=== PATIENT | female | born 1950 | race Caucasian/White ===

== ENCOUNTER → 2019-05-29 | Outpatient (CLI) | payer MEDICARE, OTHER | LOC: OD 10:36 | PROVIDERS: ATTEND Family Medicine Geriatric Medicine | DX: N39.0 Urinary tract infection, site not specified (principal) | CPT/HCPCS: 87086; 87088; 87186 ==

== ENCOUNTER 2019-07-20 05:37 | Day surgery (SDC) | payer MEDICARE, OTHER ==
[2019-07-17 13:03] LABS: AMORPHOUS SEDIMENT,URINE TRACE /HPF; APPEARANCE,URINE CLOUDY; BILIRUBIN,URINE NEGATIVE (NEGATIVE); COLOR,URINE YELLOW; GLUCOSE, URINE NEGATIVE (NEGATIVE); KETONES,URINE NEGATIVE (NEGATIVE); LEUKOCYTE ESTERASE,URINE NEGATIVE (NEGATIVE); NITRITE,URINE NEGATIVE (NEGATIVE); PROTEIN,URINE NEGATIVE (NEGATIVE); URINE SPECIFIC GRAVITY 1.015; UROBILINOGEN,URINE NEGATIVE mg/dL (<2.0)
[2019-07-17 13:07] LABS: HEMATOCRIT 42.2 % (36.0-47.0); HEMOGLOBIN 14.2 g/dL (12.0-15.5); MEAN CORPUSCULAR HEMOGLOBIN 31.1 pg (27.0-33.4); MEAN CORPUSCULAR HGB CONC 33.8 g/dL (32.0-36.0); MEAN CORPUSCULAR VOLUME 92 fl (80-97); PLATELET COUNT 316 10^3/uL (150-450); RED BLOOD COUNT 4.58 10^6/uL (3.72-5.28); RED CELL DISTRIBUTION WIDTH 13.2 % (11.5-14.0); WHITE BLOOD COUNT 8.6 10^3/uL (4.0-10.5)
[2019-07-17 13:08] LABS: ALBUMIN 4.9 g/dL (3.5-5.0); ALKALINE PHOSPHATASE 46 U/L (38-126); ANION GAP 14 (5-19); ASPARTATE AMINO TRANSFERASE 26 U/L (14-36); BILIRUBIN,DIRECT 0.3 mg/dL (0.0-0.4); BILIRUBIN,TOTAL 0.6 mg/dL (0.2-1.3); BLOOD UREA NITROGEN 17 mg/dL (7-20); CALCIUM 10.4 mg/dL (8.4-10.2); CARBON DIOXIDE 24 mmol/L (22-30); CHLORIDE 103 mmol/L (98-107); GLUCOSE 106 mg/dL (75-110); POTASSIUM 4.4 mmol/L (3.6-5.0); TOTAL PROTEIN 7.4 g/dL (6.3-8.2)
--- NOTE | 2019-07-17 13:44 | RADIOLOGY REPORT (SQ) ---
EXAM DESCRIPTION: CHEST PA/LATERAL COMPLETED DATE/TIME: 07/17/2019 12:26 pm REASON FOR STUDY: PRE-OP COMPARISON: None. EXAM PARAMETERS: NUMBER OF VIEWS: two views TECHNIQUE: Digital Frontal and Lateral radiographic views of the chest acquired. RADIATION DOSE: NA LIMITATIONS: none FINDINGS: LUNGS AND PLEURA: No opacities, masses or pneumothorax. No pleural effusion. MEDIASTINUM AND HILAR STRUCTURES: No masses or contour abnormalities. HEART AND VASCULAR STRUCTURES: Heart normal size. No evidence for failure. Aortic atherosclerosis. BONES: No acute findings. HARDWARE: Partially visualized cervical fusion hardware. Bone anchor overlies left humerus. OTHER: No other significant finding. IMPRESSION: NO SIGNIFICANT RADIOGRAPHIC FINDING IN THE CHEST. TECHNICAL DOCUMENTATION: JOB ID: [id number] [employer]- All Rights Reserved Reading location - IP/workstation name: [email or web address]
--- NOTE | 2019-07-17 15:52 | EKG REPORT ---
SEVERITY:- BORDERLINE ECG - SINUS RHYTHM BORDERLINE T ABNORMALITIES, ANTERIOR LEADS : Confirmed by: Jo-Ann Partida MD 17-Jul-2019 15:51:20
[~2019-07-20 05:37] MED LIST: CLINDAMYCIN 900 MG/D5W RTU 900 MG/50 ML RTUPB IV ONE; CLINDAMYCIN 900 MG/D5W RTU 900 MG/50 ML RTUPB IV PRN; GENTAMICIN SULFATE 120 MG in DEXTROSE 5%-WATER 100 ML IV PRN; LACTATED RINGERS 1000 ML IV PRN; LIDOCAINE 0.5% INJ-PF (5 MG/ML) 50 ML SDV SUBCUT PRN
[2019-07-20] MEDS ORDERED: FENTANYL CITRATE INJ/PF 250 MCG/5 ML AMPULE ONE (07:00)
[2019-07-20] MEDS ORDERED: LIDOCAINE 2% INJ-PF (20 MG/ML) 10 ML AMPUL ONE (07:00)
[2019-07-20] MEDS ORDERED: ONDANSETRON HCL INJ/PF 4 MG/2 ML SDV ONE (07:01)
[2019-07-20] MEDS ORDERED: PROPOFOL INJ 200 MG/20 ML VIAL IV ONE (07:01)
[2019-07-20] MEDS ORDERED: MIDAZOLAM 2 MG/2 ML INJ ONE (07:01)
[2019-07-20] MEDS ORDERED: HYDROMORPHONE HCL INJ/PF 2 MG/ML AMPULE ONE (07:01)
[2019-07-20] MEDS ORDERED: SUGAMMADEX SODIUM 200 MG/2 ML SDV IV ONE (07:01)
[2019-07-20] MEDS ORDERED: DEXAMETHASONE SOD PHOSPHATE INJ 4 MG/1 ML VIAL ONE (07:01)
[2019-07-20] MEDS ORDERED: METHYLENE BLUE 50 MG/10 ML AMPULE ONE (07:06)
[2019-07-20] MEDS ORDERED: BUPIVACAINE HCL 0.25% /EPINEPHRINE INJ/PF 30 ML SDV ONE (07:06)
[2019-07-20] MEDS ORDERED: LIDOCAINE 1%/EPINEPHRINE INJ 20 ML VIAL ONE (07:06)
[2019-07-20] MEDS ORDERED: MEPERIDINE HCL/PF INJ 25 MG/1 ML DISP.SYRIN IV PRN (08:04)
[2019-07-20] MEDS ORDERED: FENTANYL CITRATE INJ/PF 100 MCG/2 ML AMPUL IV PRN ×3 (08:04)
[2019-07-20] MEDS ORDERED: DIPHENHYDRAMINE HCL 50 MG/ML VIAL IV PRN (08:04)
[2019-07-20] MEDS ORDERED: PROMETHAZINE HCL INJ 25 MG/1 ML VIAL IV PRN ×2 (08:04)
[2019-07-20] MEDS ORDERED: ESTROGENS,CONJUGATED 0.625 MG/1 GM 30 GM TUBE PV ONE (08:30)
[2019-07-20] MEDS ORDERED: ACETAMINOPHEN 1,000 MG/100 ML RTUPB IV ONE (10:12)
--- NOTE | 2019-07-20 11:52 | Operative Report ---
Operative Report DATE OF SURGERY: 07/20/19 PREOPERATIVE DIAGNOSIS: Grade 3 uterovaginal prolapse, pelvic pain POSTOPERATIVE DIAGNOSIS: Same OPERATION: Laparoscopic assisted vaginal hysterectomy with bilateral salpingo- oophorectomy uterosacral suspension anterior and posterior repair SURGEON: ELIZABETH OWENS 1ST STRAND FORMING MACHINE OPERATOR: DIVYA OLIVEIRA ANESTHESIA: GA TISSUE REMOVED OR ALTERED: Uterus cervix and bilateral fallopian tubes and ovaries COMPLICATIONS: None ESTIMATED BLOOD LOSS: 100 cc INTRAOPERATIVE FINDINGS: 6 weeks size uterus postmenopausal ovaries grade 3 uterovaginal prolapse PROCEDURE: She was taken to the operating room prepared and draped in a normal sterile fashion in a dorsal lithotomy position with Julian stirrups. A Thurston catheter was placed to gravity under sterile conditions. A sterile speculum was placed in the vagina and the cervix was grasped on the anterior lip with a single-tooth tenaculum and a Hulka clamp was placed through the cervical canal for uterine manipulation without difficulty. Sterile speculum was removed as well as the tenaculum gloves were changed and attention was turned to the upper portion of the case. An umbilical skin incision was made to accommodate a 5 mm laparoscopic port. The peritoneal cavity was entered sharply with a varies needle and confirmation of peritoneal cavity entry was made with free-flowing sterile water through the needle. Abdomen was then inflated with approximately 2 L of CO2 gas. The varies needle was removed and the 5 mm port was placed through this incision without difficulty. That was then introduced and the above findings were noticed as the patient was placed in steep Trendelenburg. Under direct visualization 2 5 mm ports were placed on either side of the umbilicus approximately 10 cm from the umbilicus. A blunt probe was used to sweep away the bowel. Beginning with the right adnexa at this was divided at the IP ligament using the LigaSure. The right round ligament was divided again using the LigaSure and the mesosalpinx was ligated. Arteries were skeletonized using the LigaSure and some blunt dissection. We then turned our attention to the left portion of the adnexa and the left IP ligament was noted and ligated with the LigaSure. Again carried through the uterine artery dissection the LigaSure with good hemostasis maintained throughout. At this time attention was then turned to the vaginal part portion of the case. Abdomen was deflated and the camera and instruments were removed from the abdomen we then placed a short weighted speculum into the vagina the single-tooth tenaculum was removed. The cervix was then grasped with toothed triple tooth Anastacia's and was injected circumferentially with 10 cc of bupivacaine with epi. The cervix was then scored in a circumferential fashion and the mucosa was dissected away from the lower uterine segment and cervix with sharp dissection using the Humphrey scissors. The posterior cul-de-sac was entered sharply using the Mayos and a long weighted speculum replaced the short weighted speculum. We then turned our attention to entering the anterior cul-de-sac which was completed and a Sundance blade was placed into this defect to hold the bladder away. Uterus sacral ligaments were then clamped and cut on both sides using 0 Vicryl. The uterine arteries were then transected and ligated using a LigaSure. Until the specimen was completely freed. The cement was then removed and passed off the field. The vaginal cuff was then closed with 0 Vicryl runner. We then began with the anterior repair and injected approximately 5 cc of lidocaine in them in the midline hurting approximately 2 cm below the urethral opening the mucosa was then scored with a 15 blade. Mucosa was dissected sharply away from the bladder and the posterior aspect of the pubic symphysis could be felt. 3 support sutures of 2-0 Vicryl were placed in a bridge fashion under the bladder. The excess mucosa was then trimmed and this defect was then closed with 0 Vicryl runner. We then turned our attention to the posterior repair uterosacral suspension. The posterior mucosa was grasped with 2 Allis clamps and injected in the midline once more with BK bupivacaine with epi. The mucosa was scored with a 15 blade and the mucosa was dissected away from the rectocele using Metzenbaums and blunt dissection. Once the uterosacral ligament was adequately felt at the posterior pubic bone the anchor stitch was deployed with good support into the uterosacral ligament. The posterior repair was then completed with 2 more sutures of 0 Vicryl bridge. The anchor stitch was tied down. And the mucosa was closed using an 0 Vicryl runner once more the vagina was then packed with a Kerlix soaked in Premarin cream. Patient tolerated procedure well sponge lap and needle counts were correct x2 and the patient was taken recovery in stable condition.
[2019-07-20] MEDS ORDERED: PHENYLEPHRINE HCL INJ/PF 10 MG/1 ML SDV ONE (13:58)
[2019-07-20] MEDS ORDERED: GLYCOPYRROLATE 1 MG/5 ML VIAL ONE (13:58)
[2019-07-20] MEDS ORDERED: NEOSTIGMINE METHYLSULFATE 10 MG/10 ML VIAL ONE (13:58)
[2019-07-20] MEDS: KETOROLAC TROMETHAMINE INJ/PF 30 MG/1 ML SDV IV SCH ×2 (14:45→21:22)
[2019-07-20] MEDS ORDERED: ACETAMINOPHEN INJ/PF 1000 MG/100 ML SDV IV SCH (18:00)
[2019-07-20] MEDS: RINGERS SOLUTION,LACTATED 1,000 ML IV PRN (21:24)
[2019-07-21] MEDS: RINGERS SOLUTION,LACTATED 1,000 ML IV PRN (05:12)
[2019-07-21] MEDS: KETOROLAC TROMETHAMINE INJ/PF 30 MG/1 ML SDV IV SCH (05:13)
[2019-07-21 06:43] LABS: ABSOLUTE LYMPHOCYTES (AUTO) 1.5 10^3/uL (0.5-4.7); BASOPHILS % (AUTO) 0.2 % (0-2); HEMATOCRIT 34.4 % (36.0-47.0); HEMOGLOBIN 11.5 g/dL (12.0-15.5); LYMPHOCYTES % (AUTO) 11.9 % (13-45); MEAN CORPUSCULAR HEMOGLOBIN 30.9 pg (27.0-33.4); MEAN CORPUSCULAR HGB CONC 33.5 g/dL (32.0-36.0); MEAN CORPUSCULAR VOLUME 92 fl (80-97); MONOCYTES % (AUTO) 8.4 % (3-13); PLATELET COUNT 250 10^3/uL (150-450); RED BLOOD COUNT 3.72 10^6/uL (3.72-5.28); SEGMENTED NEUTROPHILS % (AUTO) 79.5 % (42-78); TOTAL CELLS COUNTED % (AUTO) 100 %; WHITE BLOOD COUNT 12.6 10^3/uL (4.0-10.5)
[2019-07-21 07:51] VITALS: BP 104/50
--- NOTE | 2019-07-21 12:08 | PDOC DISCHARGE SUMMARY ---
General - Admit/Disc Date/PCP Admission Date/Primary Care Provider: CASSIDY WINSLOW MD Discharge Date: 07/21/19 - Additional Information Resuscitation Status: Full Code Discharge Diet: As Tolerated Discharge Activity: Balance Activity w/Rest, No Lifting Over 10 Pounds, No L ifting/Push/Pulling, Pelvic Rest, No tub bath, Walk Frequently Home Medications: Buspirone HCl 1 tab PO BID 07/17/19 Ergocalciferol (Vitamin D2) [Vitamin D2] 1.25 mg PO ASDIR 07/17/19 Estrogen,Con/M-Progest Acet [Prempro 0.45-1.5 mg Tablet] 1 tab PO DAILY 07/17/19 Fenofibrate 1 cap PO QHS 07/17/19 Fluticasone Propionate [24 Hour Allergy] 1 dose NAREB QHS PRN 07/17/19 Levothyroxine Sodium [Synthroid 0.1 mg Tablet] 1 tab PO DAILY 07/17/19 Lisinopril/Hydrochlorothiazide [Lisinopril-Hctz 10-12.5 mg Tab] 1 tab PO DAILY 07/17/19 Rosuvastatin Calcium 1 tab PO QHS 07/17/19 History of Present Illness History of Present Illness: NING SOL is a 69 year old female Hospital Course Hospital Course: underwent LAVH w/ BSO USS A&P repair. Has voided and has had unremarkable post operative course with exception of mildly decreased O2 and supplemental O2 use. However, she is well and ambulating without difficulty without the oxygen. Physical Exam - Physical Exam Vital Signs: Temp Pulse Resp BP Pulse Ox 98.4 F 77 12 104/50 L 92 07/21/19 07:49 07/21/19 07:49 07/21/19 07:49 07/21/19 07:49 07/21/19 07:49 Intake & Output 07/20/19 07/21/19 07/22/19 06:59 06:59 06:59 Intake Total 0 4045 Output Total 1900 300 Balance 0 2145 -300 Weight 81.65 kg 87.7 kg General appearance: PRESENT: no acute distress, cooperative - abdomen is soft and nondistended Result Laboratory Results: 07/21/19 06:08 07/20/19 06:29 07/21/19 06:08 WBC 12.6 H RBC 3.72 Hgb 11.5 L Hct 34.4 L MCV 92 MCH 30.9 MCHC 33.5 RDW 13.0 Plt Count 250 Seg Neutrophils % 79.5 H Impressions: Chest X-Ray 07/17/19 12:18 IMPRESSION: NO SIGNIFICANT RADIOGRAPHIC FINDING IN THE CHEST. Plan Discharge Plan: follow up as scheduled in 2 wks. Time Spent: Less than 30 Minutes Acute Heart Failure - Is this a Heart Failure Patient?: No
[2019-07-21] MEDS ORDERED: IBUPROFEN 800 MG TABLET PO PRN (14:00)
== END 2019-07-21 13:05 | disposition home or self-care (01) ==
LOC: OROUT 05:37 → 2N 11:00 → OROUT 07-21 13:05
PROVIDERS: ATTEND Obstetrics & Gynecology
DX: N81.3 Complete uterovaginal prolapse (principal); N88.8 Other specified noninflammatory disorders of cervix uteri; N80.0 Endometriosis of uterus; D25.1 Intramural leiomyoma of uterus; D25.2 Subserosal leiomyoma of uterus; R10.2 Pelvic and perineal pain; I10 Essential (primary) hypertension; E07.9 Disorder of thyroid, unspecified; Z87.891 Personal history of nicotine dependence
CPT/HCPCS: 93005; 86900; 86901; 36415 ×2; 86850; 84132; 85025; 85027; 80053; 81001; 88307 ×2; 71046; 94799; 93010; 00840; 00942; 58552; 57260; J2250; J3490 ×4; J1100; A9270; J3010; J1580; J1885 ×2; J2710; J1170; J2370; J2405; J7060; J7120 ×2; J2704; J0131; 840; 942; Q9968

== ENCOUNTER → 2020-02-22 | Outpatient (CLI) | payer MEDICARE, OTHER ==
--- NOTE | 2020-02-22 10:35 | WOMENS IMAGING REPORT ---
EXAM DESCRIPTION: 3D SCREENING MAMMO BILAT IMAGES COMPLETED DATE/TIME: 02/22/2020 10:04 am REASON FOR STUDY: Z12.31 SCREENING MAMMO Z12.31 ENCNTR SCREEN MAMMOGRAM FOR MALIGNANT NEOPLASM OF B RE COMPARISON: Baseline study EXAM PARAMETERS: Views: Standard craniocaudal and mediolateral oblique views of each breast recorded using digital acquisition and breast tomosynthesis. Read with the assistance of CAD. .FORMERLY [facility] - [employer] [place] [employer] Version 9.2 LIMITATIONS: None. FINDINGS: No suspicious masses, suspicious calcifications or architectural distortion. No areas of c oncern. IMPRESSION: NEGATIVE MAMMOGRAM. BIRADS 1. BREAST DENSITY: b. There are scattered areas of fibroglandular density. BIRAD: ASSESSMENT: 1 NEGATIVE RECOMMENDATION: ROUTINE SCREENING COMMENT: The patient has been notified of the results by letter per MQSA requirements. Additional no tification policies are in place for contacting patient with suspicious or incomplete findings. Quality ID #225: The [employer] recommends an annual screening mammogram for women aged 40 years or over. This facility utilizes a reminder system to ensure that all patients receive reminder letters, and/or direct phone calls for appointments. This includes reminders for routine scr eening mammograms, diagnostic mammograms, or other Breast Imaging Interventions when appropriate. Th is patient will be placed in the appropriate reminder system. TECHNICAL DOCUMENTATION: FINDING NUMBER: (1) ASSESSMENT: (1) JOB ID: [id number] 2010 [employer]- All Rights Reserved Reading location - IP/workstation name: [id number]
== END ==
LOC: WI 09:20
PROVIDERS: ATTEND Family Medicine Geriatric Medicine
DX: Z12.31 Encounter for screening mammogram for malignant neoplasm of breast (principal)
CPT/HCPCS: 77063; 77067

== ENCOUNTER → 2020-11-05 | Outpatient (CLI) | payer MEDICARE, OTHER ==
--- NOTE | 2020-11-05 09:09 | RADIOLOGY REPORT (SQ) ---
EXAM DESCRIPTION: COOKIE SWALLOW IMAGES COMPLETED DATE/TIME: 11/05/2020 8:36 am REASON FOR STUDY: DYSPAHGIA R13.10 DYSPHAGIA, UNSPECIFIED previous cervical fusion globus sensation go COMPARISON: None. TECHNIQUE: Videofluoroscopic swallowing examination was performed in conjunction with speech patholo gy. Videofluoroscopic imaging was obtained and reviewed and these are the findings: RADIATION DOSE: 1.5 minutes of fluoroscopy was used. 1 images saved to PACS. LIMITATIONS: None FINDINGS: The patient was brought into the fluoro room and placed upright on a modified barium swall ow chair. The patient was then given multiple consistencies mixed with barium to swallow under live fluoroscopic video guidance. According to the Speech Pathologist there was no penetration or aspirat ion. Moderate cricopharyngeal hypertrophy. IMPRESSION: NO EVIDENCE OF PENETRATION OR ASPIRATION. PLEASE SEE SPEECH PATHOLOGIST REPORT FOR OTHER FINDINGS AND RECOMMENDATIONS. COMMENT: Quality ID 145: Final reports for procedures using fluoroscopy that document radiation exp osure indices, or exposure time and number of fluorographic images (if radiation exposure indices are not available) TECHNICAL DOCUMENTATION: JOB ID: [id number] 2010 [employer]- All Rights Reserved Reading location - IP/workstation name: [email or web address]
--- NOTE | 2020-11-05 11:15 | ST Modified Barium Swallow ---
Recommendation - Recommendations Recommendations: Recommend patient follow up with GI due to nature of symptoms, some signs of reduced UES function. Medical Diagnoses - Medical Diagnoses Medical Diagnosis Description & ICD-10 Code(s): R13.10, dysphagia Other Medical Diagnoses/Co-Morbidities: per patient report: possible reflux (not diagnosed), cervical spine fusion 5-[address] Modified Barium Swallow - General Date: 11/05/20 Referring Physician: Dr. Chahal Risks/Precautions: None Date of Onset: 04/29/20 - approximate date of onset - History History obtained from: Patient - Patient attended independently and acted as her own historian. -: Medical - Patient reports throat pressure and discomfort all the time, more so with swallowing and certain head movements. Reports this has been going on for 6-7 months with no clear etiology. Does notice increased difficulty with swallowing when her head is turned. No diet changes. Medications: per physician note: vascepa, rosuvastatin, vitamin D, levothyroxine, lisinopril, buspirone, estradiol, fluticasone Allergies: per patient report: sulfa, penicillin, iron - Functional Status Prior Functional Status: INDEPENDENT: feeding - independent Current Functional Limitations: feeding - discomfort with swallowing - Subjective Patient/caregiver goal(s): better swallow Cognitive-Linguistic Function: WNL Speech Intelligibility: WNL Current Nutritional Means: PO Current PO diet: Regular Current symptoms: Coughing, c/o Globus sensation Pain: Patient reports, 0/5 - Objective Assessment: Upright, Left Lateral - Food Trials Used Food trials used: Thin liquids, Pureed, Regular The patient: Was Able to Self Feed - Oral-Motor Skills Dentition: Full Velo-pharyngeal function: Unremarkable Laryngeal Function: clear voicing - Assessment Oral prep: Normal Labial closure: Adequate Leakage: None Mastication: Adequate Lingual Movement: Normal Oral stage: Normal for this Procedure - Pharyngeal Stage Initiation of Pharyngeal Stage Reflex: Normal Decreased laryngeal elevation: No Reduced Velopharyngeal Closure: no Reduced pressure generation: No reduced tongue-based retraction: No Pre-swallow pooling in valleculae: None Pre-Swallow pooling in pyriforms: None Reduced Thyro-Hyoid approximation: No Reduced epiglottic excursion: No Reduced pharyngeal peristalsis/contraction: No Post-swallow residulas vallecular: None Post-Swallow residuals in pyriforms: Mild - Esophageal Stage Esophageal Stage: Some signs of reduced UES opening, and trace retrograde movement of material up through upper esophagus. - Fall Risk Assessment Medications/Conditions that increase fall risks include: Antidepressants, sedatives, anti-arrhythmic, diuretic, benzodiazipenes, neuroleptics. BP regulation problems, cardiac problems, balance or gait deficits, neurological problems. Is patient considered at risk for falls: no Fall Risk Actions Taken: No action needed - Behavioral Observations During evaluation process patient: was cooperative, provided medical history - Treatment / Educational Needs: Treatment/Education Needs: Treatment consisted of patient education on the role of the Speech Pathologist. Patient's plan of care and golas were communicated as well as scheduling and attendance policies. Recommendations for initial home program were shared. Patient demonstrated understanding and verbalized agreement. - Impression/Summary Tracheal Aspiration: no Patient presents with: Normal swallow at eval Risk of Aspiration: Minimal Evaluation and Findings: No oral or pharyngeal phase deficits, some signs of reduced UES function. - Recommendations Solid diet recommendations: Regular Liquid Diet Modification: Thin Dysphagia therapy with SALICYLIC ACID BLENDER: no Recommended techniques: Fully Upright During Meal Information, Precautions and Recommendations: Patient (Written), Patient (Verbal) - Time Total Time: 30 - Plan of Care Strategies to optimize patient understanding include:: ongoing assessment of educational needs, implementation of educational strategies, and re-education. - - -: Thank you for the opportunity to work with this patient and his/her family. Should you have any questions about this patient's plan or progress, I can be reached at [phone].
--- NOTE | 2020-11-05 13:18 | RADIOLOGY REPORT (SQ) ---
EXAM DESCRIPTION: U/S THYROID/SFT TISS HD NECK IMAGES COMPLETED DATE/TIME: 11/05/2020 8:45 am REASON FOR STUDY: R13.10 DYSPHAGIA, UNSPECIFIED R13.10 DYSPHAGIA, UNSPECIFIED COMPARISON: None. TECHNIQUE: Dynamic and static lance-scale images acquired of the thyroid gland. Selected additional c olor/power Doppler images recorded. All images stored to PACS. LIMITATIONS: None. FINDINGS: RIGHT LOBE: Normal size, 3.2 cm. Homogeneous echotexture. No cystic or solid masses. LEFT LOBE: Normal size, 3 cm. Homogeneous echotexture. No cystic or solid masses. ISTHMUS: Normal size, 1 mm. Homogeneous echotexture. No cystic or solid masses. OTHER: No other significant finding. IMPRESSION: NORMAL THYROID ULTRASOUND. TECHNICAL DOCUMENTATION: JOB ID: [id number] 2010 [employer] All Rights Reserved Reading location - IP/workstation name: [email or web address]
== END ==
LOC: RAD 07:55
PROVIDERS: ATTEND Family Medicine Geriatric Medicine
DX: N39.0 Urinary tract infection, site not specified (principal); R13.10 Dysphagia, unspecified
CPT/HCPCS: 74230; 76536; 87086